=== PATIENT | female | born 1975 | race African-American/Black ===

== ENCOUNTER → 2016-09-20 | Outpatient (CLI) | payer MEDICARE, MEDICAID ==
[2016-05-01 10:34] VITALS: BP 166/70
[~2016-09-20] MED LIST: ARIP5TAB6 PO; ATOM80CA PO; BENA1TAB7 PO; BENZ100C2 PO; CALC-98 PO; FLUT50DI IH; IPRA15SP NS; LORA10TA3 PO; OMEP20CA9 PO; PROAIR HFA8.5 GM INH; RANI150T2 PO; TRAZ50TA15 PO
[2016-09-20 10:08] LABS: ALBUMIN/GLOBULIN RATIO 0.7 (1.0-1.7); CREATININE 0.8 mg/dL (0.6-1.0); GFR 94.7; POTASSIUM 3.5 mmol/L (3.5-5.1); TOTAL BILIRUBIN 0.5 mg/dL (0.2-1.0); TOTAL PROTEIN 7.1 g/dL (6.4-8.2)
== END | disposition home or self-care (01) ==
LOC: LAB 09:11
PROVIDERS: ATTEND Family Medicine
DX: Z00.00 Encounter for general adult medical examination without abnormal findings (principal); R73.09 Other abnormal glucose
CPT/HCPCS: 36415; 80053; 83036

== ENCOUNTER → 2017-04-03 | Outpatient (CLI) | payer BC, MEDICAID ==
[2016-05-01 10:34] VITALS: BP 166/70
[~2017-04-03] MED LIST changes: +ARIP5TAB13 PO; -ARIP5TAB6 PO; +BENZ100C15 PO; -BENZ100C2 PO
[2017-04-03 11:43] LABS: CALCIUM 8.9 mg/dL (8.5-10.1); CREATININE 0.7 mg/dL (0.6-1.0); GFR 110.5; POTASSIUM 3.2 mmol/L (3.5-5.1)
== END | disposition home or self-care (01) ==
LOC: LAB 10:48
PROVIDERS: ATTEND Family Medicine
DX: K76.89 Other specified diseases of liver (principal); R73.09 Other abnormal glucose
CPT/HCPCS: 36415; 80048; 83036

== ENCOUNTER → 2017-04-08 | Outpatient (CLI) | payer BC, MEDICAID ==
[2016-05-01 10:34] VITALS: BP 166/70
--- NOTE | 2017-04-08 13:02 | RAD ---
DATE: 04/08/2017 EXAM: MAMMO GIULIANA SCREENING BILATERAL HISTORY: Routine screening COMPARISON: 04/06/2016, 05/01/2016 The breast parenchyma shows scattered fibroglandular densities. Breast parenchyma level B. FINDINGS: 2-D and 3-D tomosynthesis imaging was performed in CC and MLO projections. There are several small smooth nodules in the right breast, better demonstrated on today's tomosynthesis imaging due to technical factors. A breast biopsy marker is present at the 6:00 location left breast. No definite new or enlarging breast densities are seen. No suspicious microcalcifications are evident. Benign-appearing lymph nodes are present in the axillary regions. IMPRESSION: Stable mammograms without evidence of malignancy. BI-RADS CATEGORY: 2 BENIGN FINDING(S) RECOMMENDED FOLLOW-UP: 12M 12 MONTH FOLLOW-UP PQRS compliance statement: Patient information was entered into a reminder system with a target due date for the next mammogram. Mammography is a sensitive method for finding small breast cancers, but it does not detect them all and is not a substitute for careful clinical examination. A negative mammogram does not negate a clinically suspicious finding and should not result in delay in biopsying a clinically suspicious abnormality. "Our facility is accredited by the [employer]ammography [employer]."
== END | disposition home or self-care (01) ==
LOC: KCIC MAMMO 11:03
PROVIDERS: ATTEND Family Medicine
DX: Z12.31 Encounter for screening mammogram for malignant neoplasm of breast (principal)
CPT/HCPCS: 77063; G0202; 77067

== ENCOUNTER → 2018-05-02 | Outpatient (CLI) | payer BC ==
[2016-05-01 10:34] VITALS: BP 166/70
[~2018-05-02] MED LIST changes: +BENZ-8 PO; -BENZ100C15 PO; +TRAZ-85 PO; -TRAZ50TA15 PO
--- NOTE | 2018-05-02 14:30 | KCIC ---
Bilateral digital screening mammograms with 3-D tomosynthesis: Reason for examination: Routine screening. Comparison is made to previous studies dated 04/08/2017 and 04/06/2016. Bilateral mammograms in CC and oblique projections were obtained with 2-D imaging and 3-D tomosynthesis imaging on a Siemens Inspiration unit and reviewed on the workstation. Interpretation was made with the benefit of CAD. The skin and nipples show no abnormalities. No abnormal axillary lymph nodes are seen. The breast parenchyma shows scattered fatty and fibroglandular density. (Breast density: Category B.) There continues to be a small nodules with adjacent biopsy clip at the 6:00 B position of the left breast. There also continue to be several small parenchymal densities bilaterally which are stable. There are no new dominant masses, suspicious calcifications or architectural distortion. Impression: No evidence of malignancy. Recommend routine screening. BI-RAD Category 2: Benign. "Our facility is accredited by the [employer] Mammography [employer]." This patient's information has been entered into a reminder system for the patient to be notified with the results of her examination and a target date for the next mammogram. Electronically signed by: Nadya Chen MD (05/02/2018 2:26 PM) [id number]
== END | disposition home or self-care (01) ==
LOC: KCIC MAMMO 12:13
PROVIDERS: ATTEND Family Medicine
DX: Z12.31 Encounter for screening mammogram for malignant neoplasm of breast (principal)
CPT/HCPCS: 77063; 77067

== ENCOUNTER → 2019-06-18 | Outpatient (CLI) | payer MEDICARE, MEDICAID ==
[2016-05-01 10:34] VITALS: BP 166/70
[~2019-06-18] MED LIST changes: +ALBU2.5V8 INH; +OMEP20CA10 PO; -OMEP20CA9 PO; -PROAIR HFA8.5 GM INH; +TRAZ-118 PO; -TRAZ-85 PO
--- NOTE | 2019-06-18 14:53 | KCIC ---
Bilateral digital screening mammograms with 3-D tomosynthesis: Reason for examination: Routine screening. Comparison is made to previous studies dated 05/02/2018 and 04/08/2017. Bilateral mammograms in CC and oblique projections were obtained with 2-D imaging and 3-D tomosynthesis imaging on a Siemens Inspiration unit and reviewed on the workstation. Interpretation was made with the benefit of CAD. The skin and nipples show no abnormalities. No abnormal axillary lymph nodes are seen. The breast parenchyma shows scattered fatty and fibroglandular density. (Breast density: Category B.) There continue to be several small nodular parenchymal densities seen bilaterally which are unchanged. Previous biopsy site is seen in the 6:00 position of the left breast. There are no new dominant masses, suspicious calcifications or architectural distortion. Impression: No evidence of malignancy. Recommend routine screening. BI-RAD Category 2: Benign. "Our facility is accredited by the [employer] Mammography [employer]." This patient's information has been entered into a reminder system for the patient to be notified with the results of her examination and a target date for the next mammogram. Electronically signed by: Nadya Chen MD (06/18/2019 2:50 PM) [id number]
== END | disposition home or self-care (01) ==
LOC: KCIC MAMMO 09:55
PROVIDERS: ATTEND Family Medicine
DX: Z12.31 Encounter for screening mammogram for malignant neoplasm of breast (principal)
CPT/HCPCS: 77063; 77067

== ENCOUNTER 2019-09-15 07:50 | Emergency (ER) | payer OTHER, MEDICARE, MEDICAID ==
[~2019-09-15] VITALS: Ht 162.6 cm; Wt 134.4 kg
[~2019-09-15 07:50] MED LIST changes: -OMEP20CA10 PO; +OMEP20CA16 PO
[2019-09-15] MEDS ORDERED: ORPH100T PO (09:25)
[2019-09-15] MEDS ORDERED: IBUP-1007 PO (09:25)
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
[2019-09-15] MEDS ORDERED: IBUPROFEN 200 MG TABLET. PO ONE (09:30)
[2019-09-15] MEDS ORDERED: ORPHENADRINE CITRATE 60 MG/2 ML VIAL. IM ONE (09:30)
[2019-09-15 09:35] VITALS: BP 143/82
== END 2019-09-15 09:37 | disposition home or self-care (01) ==
LOC: ER 07:50
DX: M54.6 Pain in thoracic spine (principal); M54.2 Cervicalgia; M25.512 Pain in left shoulder; F41.9 Anxiety disorder, unspecified; J45.909 Unspecified asthma, uncomplicated; F32.9 Major depressive disorder, single episode, unspecified; E11.9 Type 2 diabetes mellitus without complications; I10 Essential (primary) hypertension; K21.9 Gastro-esophageal reflux disease without esophagitis; Z90.710 Acquired absence of both cervix and uterus
CPT/HCPCS: 96372; 99283; J2360

== ENCOUNTER → 2021-07-25 | Outpatient (CLI) | payer MEDICAID, MEDICARE, OTHER ==
[~2021-07-25] MED LIST changes: +IBUP-1007 PO; +ORPH100T PO
--- NOTE | 2021-07-25 11:47 | RAD ---
BILATERAL DIGITAL SCREENING 2-D AND 3-D MAMMOGRAM INDICATION: Routine screening. COMPARISON: Prior exams including one of 06/18/2019. Interpretation was made using CAD. FINDINGS: Breast Density: B RIGHT BREAST: No suspicious masses, calcifications or areas of architectural distortion are seen. LEFT BREAST: No suspicious masses, calcifications or areas of architectural distortion are seen. IMPRESSION: 1. No imaging evidence of malignancy. ASSESSMENT: BI-RADS 1. Negative. RECOMMENDATION: Routine annual screening mammogram. The facility will notify the patient of the results via mail. Patient information will be entered int o the mammography reminder system with a target recall date for the next mammogram. A reminder letter will be generated by the facility. Electronically signed by: Gutierrez Gaffney Jr., MD (07/25/2021 11:44 AM) [id number]
== END ==
LOC: MAMMO 09:47
PROVIDERS: ATTEND Family Medicine
DX: Z12.31 Encounter for screening mammogram for malignant neoplasm of breast (principal)
CPT/HCPCS: 77063; 77067